=== PATIENT | female | born 1965 | race Two or more races ===

== ENCOUNTER 2022-08-07 06:32 | Emergency (ER) | payer MEDICAID ==
[~2022-08-07] VITALS: Ht 154.9 cm; Wt 63.6 kg
[2022-08-07 07:39] VITALS: BP 125/81
[2022-08-07] MEDS ORDERED: ACETAMINOPHEN 500 MG TAB PO ONE (08:45)
[2022-08-07] MEDS ORDERED: NAPR500T31 PO (08:58)
== END 2022-08-07 09:09 | disposition home or self-care (01) ==
LOC: ER 06:32
DX: S00.83XA Contusion of other part of head, initial encounter (principal); S60.211A Contusion of right wrist, initial encounter; M50.30 Other cervical disc degeneration, unspecified cervical region; W06.XXXA Fall from bed, initial encounter; Y93.89 Activity, other specified; Y92.89 Other specified places as the place of occurrence of the external cause; Y99.8 Other external cause status
CPT/HCPCS: 70450; 71045; 72125